=== PATIENT | female | born 1960 | race Caucasian/White ===

== ENCOUNTER 2020-02-11 23:24 | Emergency (ER) | payer MEDICAID ==
[~2020-02-11] VITALS: Ht 177.8 cm; Wt 77.1 kg
--- NOTE | 2020-02-11 23:44 | NUR ---
PT BIBSELF C/O POSSIBLE ALLERGIC REACTION, UNKNOWN CAUSE SINCE YESTERDAY WITH RIGHT EYE SWELLING WITH HIVES AND ITCHIGN THROUGHOUT BODY. PT AOX4 RR EVEN AND UNLABORED. NO SOB NOTED. NO NVD AT THIS TIME. PT WAITING FOR MD SIFUENTES.
[2020-02-12] MEDS ORDERED: diphenhydrAMINE HCL 50 MG CAPSULE ONE (00:12)
[2020-02-12] MEDS ORDERED: predniSONE 20 MG TABLET ONE (00:12)
[2020-02-12] MEDS: predniSONE 20 MG TABLET PO ONE (00:17)
[2020-02-12] MEDS: diphenhydrAMINE HCL 50 MG CAPSULE PO ONE (00:17)
--- NOTE | 2020-02-12 00:29 | NUR ---
Patient discharged to home in stable condition. Written and verbal after care instructions given. Patient verbalizes understanding of instruction.Pt ambulatory with a steady gait
[2020-02-12 00:30] VITALS: BP 146/84
== END 2020-02-12 00:30 | disposition home or self-care (01) ==
LOC: ER 23:35
DX: L50.0 Allergic urticaria (principal)
CPT/HCPCS: 99283; J7512; Q0163

== ENCOUNTER 2025-06-26 18:16 | Emergency (ER) | payer MEDICARE, OTHER ==
[~2025-06-26] VITALS: Ht 165.1 cm; Wt 90.7 kg
[2025-06-26] MEDS ORDERED: MECLIZINE HCL 25 MG TABLET ONE ×2 (19:14→19:21)
[2025-06-26 19:23] LABS: PLATELET COUNT (AUTO) 222 K/uL (150-450); RED BLOOD CELL COUNT(AUTO) 4.81 MIL/uL (4.0-5.2); RED CELL DISTRIBUTION WIDTH 13.8 % (11.5-15.0); WHITE BLOOD COUNT (AUTO) 11.0 K/uL (4.3-11.0)
[2025-06-26] MEDS: MECLIZINE HCL 25 MG TABLET PO ONE (19:23)
[2025-06-26 19:32] LABS: CALCIUM, SERUM 9.3 mg/dL (8.5-10.1); CREATININE 0.7 mg/dL (0.6-1.3); SODIUM SERUM 138 mmol/L (136-145); UREA NITROGEN, BLOOD 20 mg/dL (7-18)
[2025-06-26 19:45] LABS: ASPARTATE AMINOTRANSFERASE 15 U/L (15-37); NT-PRO BNP 37 pg/mL (0-125); TOTAL PROTEIN, SERUM 7.2 g/dL (6.4-8.2)
[2025-06-26] MEDS ORDERED: MECL-159 PO (20:19)
[2025-06-26 20:26] VITALS: BP 110/70; TEMP 98.2; O2SAT 93
== END 2025-06-26 20:26 | disposition home or self-care (01) ==
LOC: ER 18:16
DX: R42 Dizziness and giddiness (principal); R53.1 Weakness; R06.02 Shortness of breath; Z20.822 Contact with and (suspected) exposure to COVID-19
CPT/HCPCS: 99285; 70450; 71045; 87426; 93005; 85025; 80048; 80076; 36415; 84484; 83880; J8597 ×2